=== PATIENT | female | born 1970 | race Caucasian/White ===

== ENCOUNTER → 2023-01-30 10:00 | Outpatient (BNVA) | payer BC, MEDICAID, SELFPAY | PROVIDERS: Referring Provider Nurse Practitioner; Visit Provider Internal Medicine Rheumatology | DX: M54.9 Dorsalgia, unspecified (principal); R76.8 Other specified abnormal immunological findings in serum | CPT/HCPCS: 36415; 72202; 82085; 82550 ==

== ENCOUNTER 2023-03-21 06:00 | Outpatient (RCR) | payer BC, MEDICAID, SELFPAY | END 2023-04-19 23:59 | disposition home or self-care (01) | LOC: GPT 06:00 | PROVIDERS: Visit Provider Nurse Practitioner | DX: M46.1 Sacroiliitis, not elsewhere classified (principal) | CPT/HCPCS: 97110; 97112; 97140; 97162 ==

== ENCOUNTER 2023-04-20 06:00 | Outpatient (RCR) | payer BC, MEDICAID, SELFPAY | END 2023-05-18 23:59 | disposition home or self-care (01) | LOC: GPT 06:00 | PROVIDERS: Visit Provider Nurse Practitioner | DX: M46.1 Sacroiliitis, not elsewhere classified (principal) | CPT/HCPCS: 97110 ==

== ENCOUNTER → 2024-01-22 11:57 | Outpatient (BNVA) | payer BC, MEDICAID, SELFPAY | PROVIDERS: PCP Nurse Practitioner; Referring Provider Nurse Practitioner; Visit Provider Psychiatry & Neurology Neurology | DX: M62.81 Muscle weakness (generalized) (principal) | CPT/HCPCS: 36415; 82306; 82607; 82746; 83090; 83735; 83921; 84439; 84443; 84481; 86617 ==

== ENCOUNTER 2024-02-08 12:23 | Outpatient (CLI) | payer BC, MEDICAID, SELFPAY ==
--- NOTE | 2024-02-08 13:15 | USCV_ITS ---
Tia Mccrary Age: 53 Gender: F : 1970 Exam Date: 02/08/2024 12:36 Ordering Phys: Edward Price MD Technologist: [employer] Exam Location: [facility] [place] Indication: Risk Factors: Previous Vascular Surgery: Right Brachial BP: / Left Brachial BP: / Right Left Velocity (cm/s) Spectral Plaque Velocity (cm/s) Spectral Plaque Syst/Diast Broadening Syst/Diast Broadening 87.20/ 22.90 Prox CCA 82.90 / 24.50 76.50/ 29.40 Mid CCA 80.70 / 20.90 68.40/ 29.10 Distal CCA 80.40 / 24.50 47.80/ 20.10 Prox ICA 45.70 / 13.90 62.80/ 22.00 Mid ICA 66.80 / 27.80 54.50/ 25.90 Distal ICA 72.00 / 32.00 78.80 ECA 99.60 0.90 ICA/CCA 0.90 Antegrade Vertebral Antegrade 30.60/ 8.80 cm/s 44.80/ 15.50 cm/s Tri Subclavian Tri 69.20 74.70 CONCLUSIONS Right ICA stenosis <50%. Left ICA stenosis <50%. Intimal thickening in the common carotid arteries and internal carotid arteries bilaterally. Normal antegrade Doppler flow noted in the right vertebral artery. Normal antegrade Doppler flow noted in the left vertebral artery. Benedict Esquivel MD (Electronically Signed) Final Date: 08 February 2024 16:32 S
== END 2024-02-08 12:24 | disposition home or self-care (01) ==
LOC: RAD 12:23
PROVIDERS: PCP Nurse Practitioner; Visit Provider Psychiatry & Neurology Neurology
DX: I65.23 Occlusion and stenosis of bilateral carotid arteries (principal); M62.81 Muscle weakness (generalized)
CPT/HCPCS: 93880

== ENCOUNTER 2024-09-27 11:37 | Outpatient (CLI) | payer BC, MEDICAID, SELFPAY ==
--- NOTE | 2024-09-27 12:45 | US_ITS ---
WS: [id number] ULTRASOUND THYROID FNA CLINICAL INFORMATION: E04.1 - Nontoxic single thyroid nodule TECHNIQUE: Ultrasound-guided FNA FINDINGS: The procedure including risks, benefits, and complications were discussed with the patient who agreed to proceed. Timeout was performed. Using sterile technique patient was prepped and draped in usual sterile fashion. After 1% lidocaine, using ultrasound guidance, a 25-gauge needle was advanced into the RIGHT mid thyroid nodule. 5 passes were made without and with active aspiration. Pathology was present for slide preparation. No immediate complications. Patient remained in the ultrasound suite 10 minutes postprocedure with intermittent ultrasound to ensure no hematoma. Small amount of expected edema and blood products about the thyroid nodule. No significant hematoma. US/US biopsy/FNA thyroid 51422 IMPRESSION: Uncomplicated ultrasound-guided thyroid FNA of the RIGHT mid thyroid nodule
== END 2024-09-27 11:38 | disposition home or self-care (01) ==
PROVIDERS: PCP Nurse Practitioner; Visit Provider Internal Medicine
DX: E04.1 Nontoxic single thyroid nodule (principal)
CPT/HCPCS: 10005; 88173